=== PATIENT | male | born 1955 | race Caucasian/White ===

== ENCOUNTER 2022-11-18 04:40 | Emergency (ER) | payer OTHER ==
[~2022-11-18] VITALS: Ht 160 cm; Wt 76.2 kg
[2022-11-18 04:47] VITALS: BP 169/69; PULSE 65; RESP 16; TEMP 97.8; O2SAT 99
--- NOTE | 2022-11-18 04:50 | NUR ---
TO LOBBY A/W BED AMBULATORY
[2022-11-18 05:05] VITALS: TEMP 97.8
[2022-11-18] MEDS ORDERED: lisinopriL 20 MG TAB PO ONE (06:30)
--- NOTE | 2022-11-18 06:30 | NUR ---
seen and examined by DANIELA
--- NOTE | 2022-11-18 06:44 | NUR ---
medicated as per ERMDs order, tolerated well
[2022-11-18 07:59] VITALS: BP 143/66; PULSE 79; RESP 17; O2SAT 98
[2022-11-18] MEDS ORDERED: AMLO-271 PO (08:05)
--- NOTE | 2022-11-18 08:12 | NUR ---
Patient discharged with v/s stable. Written and verbal after care instructions given and explained. Patient alert, oriented and verbalized understanding of instructions. Ambulatory with steady gait. All questions addressed prior to discharge. ID band removed. Patient advised to follow up with PMD. Rx of NORVASC given. Patient educated on indication of medication including possible reaction and side effects. Opportunity to ask questions provided and answered.
== END 2022-11-18 08:12 | disposition home or self-care (01) ==
LOC: MED 04:40
DX: R53.1 Weakness (principal); I10 Essential (primary) hypertension; E11.9 Type 2 diabetes mellitus without complications; Z86.73 Personal history of transient ischemic attack (TIA), and cerebral infarction without residual deficits
CPT/HCPCS: 99283